=== PATIENT | female | born 1965 | race Hispanic/Latino ===

== ENCOUNTER 2016-07-17 10:22 | Emergency (ER) | payer OTHER ==
[2016-07-17 10:46] VITALS: TEMP 98
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
[2016-07-17 11:51] VITALS: BP 130/86; O2SAT 96
== END 2016-07-17 11:52 | disposition home or self-care (01) ==
LOC: ER 10:22
DX: S13.9XXA Sprain of joints and ligaments of unspecified parts of neck, initial encounter (principal); V49.60XA Unspecified car occupant injured in collision with unspecified motor vehicles in traffic accident, initial encounter; Y92.410 Unspecified street and highway as the place of occurrence of the external cause